=== PATIENT | male | born 1940 | race Caucasian/White ===

== ENCOUNTER 2023-07-29 13:43 | Inpatient (IN) | payer OTHER ==
[~2023-07-29] VITALS: Ht 180.3 cm; Wt 117.9 kg
[2023-07-29 13:59] VITALS: BP 113/75; PULSE 69; RESP 20; TEMP 98.1; O2SAT 98
[2023-07-29 15:15] LABS: BASOPHILS % (AUTO) 0.2 % (0.0-2.0); EOSINOPHILS % (AUTO) 0.1 % (0.0-4.0); HEMATOCRIT 37.6 % (36-52); HEMOGLOBIN 12.5 g/dL (12.0-18.0); LYMPHOCYTES % (AUTO) 6.7 % (20.5-51.1); MEAN CORPUSCULAR HEMOGLOBIN 29 pg (27-31); MEAN CORPUSCULAR HGB CONC 33 g/dL (33-37); MEAN CORPUSCULAR VOLUME 88.3 fL (80-94); MONOCYTES % (AUTO) 7.2 % (1.7-9.3); NEUTROPHILS # (AUTO) 12.2 K/uL (1.8-7.7); NEUTROPHILS % (AUTO) 85.8 % (42.2-75.2); PLATELET COUNT (AUTO) 230 K/uL (140-450); RED BLOOD CELL COUNT(AUTO) 4.26 MIL/uL (4.20-6.10); RED CELL DISTRIBUTION WIDTH 17.5 % (11.6-13.7); WHITE BLOOD COUNT (AUTO) 14.2 K/uL (4.8-10.8)
[2023-07-29 15:29] LABS: INR 1.16 (0.8-1.2); PARTIAL THROMBOPLASTIN TIME 24.9 secs (22-35.6); PROTHROMBIN TIME 12.1 secs (10.8-13.4)
[2023-07-29 15:31] LABS: ANION GAP 12.1 (8-16); CALCIUM 9.7 mg/dL (8.5-10.1); CARBON DIOXIDE 28.6 mmol/L (21-32); CHLORIDE 100 mmol/L (98-107); CREATININE 2.3 mg/dL (0.6-1.3); GLUCOSE 199 mg/dL (74-106); POTASSIUM 5.7 mmol/L (3.5-5.1); SODIUM SERUM 135 mmol/L (136-145); UREA NITROGEN, BLOOD 43 mg/dL (7-18)
[2023-07-29 15:35] LABS: ALANINE AMINOTRANSFERASE 9 U/L (12-78); ALBUMIN 3.6 g/dL (3.4-5.0); ALKALINE PHOSPHATASE 118 U/L (50-136); ASPARTATE AMINOTRANSFERASE 18 U/L (15-37); BILIRUBIN,DIRECT 0.3 mg/dL (0.0-0.3); TOTAL PROTEIN, SERUM 8.2 g/dL (6.4-8.2)
[2023-07-29] MEDS ORDERED: ACETAMINOPHEN 325 MG TAB PO PRN (17:35)
[2023-07-29] MEDS ORDERED: POTASSIUM CHLORIDE 10 MEQ TABER PO PRN (17:35)
[2023-07-29] MEDS ORDERED: ONDANSETRON 4 MG/2 ML VIAL IVP PRN (17:35)
[2023-07-29] MEDS ORDERED: MORPHINE SULFATE 2 MG/ML SYR IVP PRN (17:35)
[2023-07-29] MEDS ORDERED: HEPARIN PER PHARMACY MC PRN ×2 (17:35)
[2023-07-29] MEDS: NACL 0.9% 1,000 ML IV SCH (17:35)
[2023-07-29] MEDS: ONDANSETRON 4 MG ODT PO ONE (18:29)
[2023-07-29] MEDS: DEXTROSE 50% 50 ML SYR IVP ONE (18:43)
[2023-07-29] MEDS: NACL 0.9% 1,000 ML IV ONE (18:50)
[2023-07-29] MEDS: INSULIN REGULAR, HUMAN 100 UNIT/ML VIAL IVP ONE (18:50)
[2023-07-29 21:30] VITALS: PULSE 66; RESP 17
[2023-07-29 21:45] VITALS: PULSE 70
[2023-07-29] MEDS: hePARIN / DEXT 5% PREMIX 250 ML IV SCH (22:28)
[2023-07-30] VITALS (8 sets, daily range): BP systolic 125–144; BP diastolic 68–99; PULSE 59–82; RESP 17–20; TEMP 96.9–98.2; O2SAT 90–100
[2023-07-30 04:36] LABS: BASOPHILS # (AUTO) 0.1 K/uL (0.00-0.22); BASOPHILS % (AUTO) 0.5 % (0.0-2.0); EOSINOPHILS # (AUTO) 0.1 K/uL (0-0.4); EOSINOPHILS % (AUTO) 0.8 % (0.0-4.0); HEMATOCRIT 34.1 % (36-52); HEMOGLOBIN 11.3 g/dL (12.0-18.0); LYMPHOCYTES # (AUTO) 1.5 K/uL (2.0-11.5); LYMPHOCYTES % (AUTO) 13.9 % (20.5-51.1); MEAN CORPUSCULAR HEMOGLOBIN 29 pg (27-31); MEAN CORPUSCULAR HGB CONC 33 g/dL (33-37); MEAN CORPUSCULAR VOLUME 88.4 fL (80-94); MONOCYTES # (AUTO) 0.9 K/uL (0.8-1.0); MONOCYTES % (AUTO) 7.7 % (1.7-9.3); NEUTROPHILS # (AUTO) 8.6 K/uL (1.8-7.7); NEUTROPHILS % (AUTO) 77.1 % (42.2-75.2); PLATELET COUNT (AUTO) 160 K/uL (140-450); RED BLOOD CELL COUNT(AUTO) 3.86 MIL/uL (4.20-6.10); RED CELL DISTRIBUTION WIDTH 17.7 % (11.6-13.7); WHITE BLOOD COUNT (AUTO) 11.1 K/uL (4.8-10.8)
[2023-07-30 08:12] LABS: ANION GAP 13.5 (8-16); CALCIUM 9.4 mg/dL (8.5-10.1); CARBON DIOXIDE 27.7 mmol/L (21-32); CHLORIDE 102 mmol/L (98-107); CREATININE 2.3 mg/dL (0.6-1.3); GLUCOSE 162 mg/dL (74-106); POTASSIUM 5.2 mmol/L (3.5-5.1); SODIUM SERUM 138 mmol/L (136-145); UREA NITROGEN, BLOOD 43 mg/dL (7-18)
[2023-07-30] MEDS ORDERED: ACET-2619 PO (12:23)
[2023-07-30] MEDS ORDERED: FURO-570 PO (12:29)
[2023-07-30] MEDS ORDERED: FOLI1TAB90 PO (12:29)
[2023-07-30] MEDS ORDERED: SIMV-33 PO (12:29)
[2023-07-30] MEDS ORDERED: FERR324T11 PO (12:29)
[2023-07-30] MEDS ORDERED: TAMS0.4C96 PO (12:29)
[2023-07-30] MEDS ORDERED: DETLA4 PO (12:29)
[2023-07-30] MEDS ORDERED: OMEP40EC23 PO (12:29)
[2023-07-30] MEDS ORDERED: SITA50TA3 PO (12:29)
[2023-07-30] MEDS ORDERED: FINA1TAB30 PO (12:29)
[2023-07-30] MEDS ORDERED: APIX5TAB PO (15:35)
[2023-07-30 19:23] LABS: BILIRUBIN,URINE NEGATIVE (NEGATIVE); BLOOD, URINE 3+ (NEGATIVE); COLOR,URINE YELLOW (YELLOW); LEUKOCYTE ESTERASE ,URINE TRACE (NEGATIVE); NITRITE, URINE NEGATIVE (NEGATIVE); PROTEIN,URINE TRACE (NEGATIVE); UGLUCOSE NEGATIVE (NEGATIVE); UROBILINOGEN,URINE 0.2 EU/dL (0.2 - 1)
[2023-07-30 19:25] LABS: APPEARANCE,URINE SLIGHTLY HAZY (CLEAR)
[2023-07-30 19:27] LABS: BACTERIA,URINE 2+ /HPF (None Seen); MUCUS,URINE None Seen /LPF (None Seen); RBC,URINE 11-20 (MOD) /HPF (0-5); SQUAMOUS EPITHELIAL CELL,UR 4-10 (MOD) /LPF (0-3 (FEW))
[2023-07-30 19:43] LABS: URINE TOTAL PROTEIN 0.2 mg/dL (0-12)
[2023-07-31] VITALS (8 sets, daily range): BP systolic 113–144; BP diastolic 62–98; PULSE 60–65; RESP 18–20; TEMP 97–97.8; O2SAT 93–100
[2023-07-31 04:35] LABS: BASOPHILS # (AUTO) 0.1 K/uL (0.00-0.22); BASOPHILS % (AUTO) 0.9 % (0.0-2.0); EOSINOPHILS # (AUTO) 0.2 K/uL (0-0.4); EOSINOPHILS % (AUTO) 1.9 % (0.0-4.0); HEMATOCRIT 34.3 % (36-52); HEMOGLOBIN 11.5 g/dL (12.0-18.0); LYMPHOCYTES # (AUTO) 1.7 K/uL (2.0-11.5); LYMPHOCYTES % (AUTO) 19.4 % (20.5-51.1); MEAN CORPUSCULAR HEMOGLOBIN 29 pg (27-31); MEAN CORPUSCULAR HGB CONC 34 g/dL (33-37); MEAN CORPUSCULAR VOLUME 87.9 fL (80-94); MONOCYTES # (AUTO) 0.6 K/uL (0.8-1.0); MONOCYTES % (AUTO) 7.4 % (1.7-9.3); NEUTROPHILS % (AUTO) 70.4 % (42.2-75.2); PLATELET COUNT (AUTO) 169 K/uL (140-450); RED CELL DISTRIBUTION WIDTH 17.5 % (11.6-13.7); WHITE BLOOD COUNT (AUTO) 8.6 K/uL (4.8-10.8)
[2023-07-31 04:50] LABS: ANION GAP 12.8 (8-16); CALCIUM 9.1 mg/dL (8.5-10.1); CARBON DIOXIDE 27.6 mmol/L (21-32); CHLORIDE 103 mmol/L (98-107); CREATININE 1.8 mg/dL (0.6-1.3); GLUCOSE 153 mg/dL (74-106); POTASSIUM 4.4 mmol/L (3.5-5.1); SODIUM SERUM 139 mmol/L (136-145); UREA NITROGEN, BLOOD 38 mg/dL (7-18)
[2023-07-31] MEDS: LACTULOSE 20 GM/30 ML UDC PO PRN (10:54)
[2023-07-31] MEDS: HYDROcodone/APAP 5/325 MG 1 TAB TAB PO PRN (14:09)
[2023-07-31] MEDS: APIXABAN 2.5 MG TAB PO SCH (14:51)
[2023-08-01] VITALS: BP 128/64; PULSE 59; RESP 18; TEMP 97.5; O2SAT 99
[2023-08-01 04:00] VITALS: BP 121/64; PULSE 60; RESP 18; TEMP 98.1; O2SAT 98
[2023-08-01 06:45] LABS: BASOPHILS # (AUTO) 0.1 K/uL (0.00-0.22); BASOPHILS % (AUTO) 0.7 % (0.0-2.0); EOSINOPHILS # (AUTO) 0.2 K/uL (0-0.4); EOSINOPHILS % (AUTO) 2.5 % (0.0-4.0); HEMATOCRIT 33.3 % (36-52); HEMOGLOBIN 11.2 g/dL (12.0-18.0); LYMPHOCYTES # (AUTO) 1.6 K/uL (2.0-11.5); LYMPHOCYTES % (AUTO) 20.3 % (20.5-51.1); MEAN CORPUSCULAR HEMOGLOBIN 30 pg (27-31); MEAN CORPUSCULAR HGB CONC 34 g/dL (33-37); MEAN CORPUSCULAR VOLUME 88.5 fL (80-94); MONOCYTES # (AUTO) 0.8 K/uL (0.8-1.0); MONOCYTES % (AUTO) 9.8 % (1.7-9.3); NEUTROPHILS # (AUTO) 5.2 K/uL (1.8-7.7); NEUTROPHILS % (AUTO) 66.7 % (42.2-75.2); PLATELET COUNT (AUTO) 155 K/uL (140-450); RED BLOOD CELL COUNT(AUTO) 3.77 MIL/uL (4.20-6.10); RED CELL DISTRIBUTION WIDTH 17.6 % (11.6-13.7); WHITE BLOOD COUNT (AUTO) 7.7 K/uL (4.8-10.8)
[2023-08-01 06:51] LABS: CALCIUM 8.5 mg/dL (8.5-10.1); CARBON DIOXIDE 27.8 mmol/L (21-32); CHLORIDE 103 mmol/L (98-107); CREATININE 1.5 mg/dL (0.6-1.3); GLUCOSE 144 mg/dL (74-106); POTASSIUM 3.8 mmol/L (3.5-5.1); SODIUM SERUM 139 mmol/L (136-145); UREA NITROGEN, BLOOD 31 mg/dL (7-18)
[2023-08-01 08:00] VITALS: PULSE 59; PULSE 61; RESP 18; O2SAT 93
[2023-08-01] MEDS: WOUND CARE PREPARATION 178 ML SPR TP SCH (13:00)
[2023-08-01 20:00] VITALS: BP 127/59; PULSE 60; RESP 21; TEMP 97.5; O2SAT 99
[2023-08-02] VITALS: BP 123/62; PULSE 59; PULSE 60; RESP 21; TEMP 97.7; O2SAT 99
[2023-08-02 04:00] VITALS: BP 118/67; PULSE 60; RESP 21; TEMP 97.6; O2SAT 99
[2023-08-02 06:41] LABS: BASOPHILS % (AUTO) 0.5 % (0.0-2.0); EOSINOPHILS # (AUTO) 0.3 K/uL (0-0.4); EOSINOPHILS % (AUTO) 4.2 % (0.0-4.0); HEMATOCRIT 35.1 % (36-52); HEMOGLOBIN 11.6 g/dL (12.0-18.0); LYMPHOCYTES # (AUTO) 1.6 K/uL (2.0-11.5); MEAN CORPUSCULAR HEMOGLOBIN 29 pg (27-31); MEAN CORPUSCULAR HGB CONC 33 g/dL (33-37); MEAN CORPUSCULAR VOLUME 88.8 fL (80-94); MONOCYTES # (AUTO) 0.6 K/uL (0.8-1.0); MONOCYTES % (AUTO) 7.8 % (1.7-9.3); NEUTROPHILS # (AUTO) 5.2 K/uL (1.8-7.7); NEUTROPHILS % (AUTO) 66.5 % (42.2-75.2); PLATELET COUNT (AUTO) 170 K/uL (140-450); RED BLOOD CELL COUNT(AUTO) 3.95 MIL/uL (4.20-6.10); RED CELL DISTRIBUTION WIDTH 17.5 % (11.6-13.7); WHITE BLOOD COUNT (AUTO) 7.7 K/uL (4.8-10.8)
[2023-08-02 07:12] LABS: ANION GAP 13.2 (8-16); CALCIUM 8.8 mg/dL (8.5-10.1); CARBON DIOXIDE 26.5 mmol/L (21-32); CHLORIDE 103 mmol/L (98-107); CREATININE 1.4 mg/dL (0.6-1.3); GLUCOSE 141 mg/dL (74-106); POTASSIUM 3.7 mmol/L (3.5-5.1); SODIUM SERUM 139 mmol/L (136-145); UREA NITROGEN, BLOOD 28 mg/dL (7-18)
[2023-08-02] MEDS: FUROSEMIDE 20 MG/2 ML VIAL IVP SCH (16:24)
== END 2023-08-02 16:59 | DRG 300 ==
LOC: MED 13:43 → MMU 17:33 → OBSVTOIN 17:35 → MTU 19:22
PROVIDERS: ADMIT Student in an Organized Health Care Education/Training Program; ATTEND Student in an Organized Health Care Education/Training Program
DX: I82.443 Acute embolism and thrombosis of tibial vein, bilateral (principal); N17.9 Acute kidney failure, unspecified; I48.91 Unspecified atrial fibrillation; N40.0 Benign prostatic hyperplasia without lower urinary tract symptoms; E78.5 Hyperlipidemia, unspecified; M10.9 Gout, unspecified; E11.51 Type 2 diabetes mellitus with diabetic peripheral angiopathy without gangrene; I12.9 Hypertensive chronic kidney disease with stage 1 through stage 4 chronic kidney disease, or unspecified chronic kidney disease; E11.22 Type 2 diabetes mellitus with diabetic chronic kidney disease; N18.30 Chronic kidney disease, stage 3 unspecified; D64.9 Anemia, unspecified; Z88.8 Allergy status to other drugs, medicaments and biological substances
CPT/HCPCS: 36415; 71045; 76770; 80048; 80076; 81001; 82570; 82948; 83735; 83880; 84484; 85025; 85610; 85730; 87081; 87086; 93005; 93925; 93970; 96361; 96374; 96375; 97112; 97116; 97163-GP; 97530; 99291; J1644; J1815; J1940; Q0092; Q0162; Q0163